=== PATIENT | female | born 1975 | race Caucasian/White ===

== ENCOUNTER → 2019-05-19 09:45 | Outpatient (CLI) | payer OTHER, SELFPAY ==
--- NOTE | ~2019-05-19 | MM_ITS ---
EXAMINATION: MM screening [facility] BI w sandip HISTORY: Screening mammogram TECHNIQUE: Craniocaudal and mediolateral oblique 3-D tomosynthesis images were obtained and synthetic 2-D images were generated. CAD analysis was submitted and interpreted. COMPARISON: 08/20/2014, 12/10/2009 BREAST PARENCHYMAL COMPOSITION: There are scattered areas of fibroglandular density. FINDINGS: There is no evidence of suspicious mass, calcification, or architectural distortion to sugg est malignancy in either breast. There has been no suspicious interval change. IMPRESSION: 1. No mammographic evidence of malignancy. 2. Recommend routine screening mammography in one year. BI-RADS Category 1: Negative Reviewed, dictated and finalized at location A.
== END ==
PROVIDERS: PCP Family Medicine Adolescent Medicine; Visit Provider Family Medicine Adolescent Medicine
DX: Z12.31 Encounter for screening mammogram for malignant neoplasm of breast (principal)
CPT/HCPCS: 77063; 77067

== ENCOUNTER 2020-01-24 07:05 | Outpatient (NON) | payer OTHER, SELFPAY ==
[2020-01-24 18:30] LABS: SARS-CoV-2 RNA PCR Negative
== END 2020-01-24 07:06 ==
LOC: ANHCOVIDDT 07:22
PROVIDERS: Visit Provider Family Medicine Adolescent Medicine
DX: R09.81 Nasal congestion (principal); Z20.828 Contact with and (suspected) exposure to other viral communicable diseases
CPT/HCPCS: 87635; C9803; U0003

== ENCOUNTER → 2021-06-25 15:52 | Outpatient (CLI) | payer OTHER, SELFPAY ==
--- NOTE | ~2021-06-25 | MM_ITS ---
EXAMINATION: MM screening [facility] BI w sandip HISTORY: . TECHNIQUE: Craniocaudal and mediolateral oblique 3-D tomosynthesis images were obtained and synthetic 2-D images were generated. CAD analysis was submitted and interpreted. COMPARISON: 05/19/2019, 08/20/2014 bilateral screening mammogram examinations BREAST PARENCHYMAL COMPOSITION: The breasts are almost entirely fatty. FINDINGS: There is no evidence of suspicious mass, calcification, or architectural distortion to sugg est malignancy in either breast. There has been no suspicious interval change. IMPRESSION: 1. No mammographic evidence of malignancy. 2. Recommend routine screening mammography in one year. BI-RADS Category 1: Negative Reviewed, dictated and finalized at location A.
== END ==
PROVIDERS: PCP Family Medicine Adolescent Medicine; Visit Provider Obstetrics & Gynecology
DX: Z12.31 Encounter for screening mammogram for malignant neoplasm of breast (principal)
CPT/HCPCS: 77063; 77067

== ENCOUNTER 2024-03-20 08:26 | Outpatient (CLI) | payer BC, SELFPAY ==
--- NOTE | 2024-03-20 | ECG_ITS ---
Test Date: 2024-03-20 09:04:47 Measurements Intervals Imbler Rate: 64 P: 60 TN: 207 QRS: 37 QRSD: 85 T: 41 QT: 380 QTc: 393 Interpretive Statements SINUS RHYTHM LOW QRS VOLTAGE IN PRECORDIAL LEADS [QRS DEFLECTION < 1.0 mV IN CHEST LEADS] No previous ECG available for comparison Electronically Signed On 03-20-2024 16:17:41 LEGAL FINANCIAL SPECIALIST by Hardeep Cramer M.D.
--- OUTSIDE RECORDS SUMMARY | 2024-03-20 08:42 | XMS_ITS | Continuity of Care Document ---
Author Organization [id number] [email or web address]) [facility] Address [address] [place] [address] Phone Care Team Providers Care Bean Dumper Name Role Phone Mary Barber MD Unavailable Unavailable Allergies, Adverse Reactions, Alerts Substance Reaction Status Criticality No Known Allergies Active No Inform ation Medications Medication Instructions Dosage Effective Dates (start - stop) Status Comments tramadol 50 mg tablet take 1 tablet by oral route every 6 hours as needed 50 MG - Active Xanax 0.5 mg tablet take 1 tablet by oral route 2 times every day 0.5 MG - Active Imitrex 100 mg tablet take 1 tablet by oral route once at onset of headache, may repeat in 2 hours one time 100 MG - Active Zithromax Z-Daryn 250 mg tablet take 2 tablet by oral route every day for 1 day then 1 tablet (250 mg) by oral route once daily for 4 days 500 MG - No Longer Active Problems Condition Type Effective Dates (start - stop) Clini sincere Status Comments No Known Problems Procedures Procedure Date OFFICE/OUTPT EM EST EXP PROB FOCUS/LOW 1 5 MINS PREVENTIVE MED ESTABLISHED PT 40-64YRS S COLLECTION VENOUS BLOOD VENIPUNCTURE June PREVENTIVE MED INITIAL NEW PT 40-64YRS M Advance Directives Directive Yes / No Effective Date File Name No Information Encounters Encounter Description Practice Location Reason(s) For Visit Diagnoses Date Provider Providers Copied on Encounter [id number] - [place] [employer], [address], [place], [place], [facility], [place] tel:[phone] [facility] No Information 7 Elisabeth Hernandez. [address] [place] [address], [address], [place], [place], [address] [place] [address] , . [phone] OFFICE/OUTPT EM EST EXP PROB FOCUS/LOW 15 MINS [id number] - [place] [facility] [employer], [address], [place], [place], [facility], [place] tel:[phone] [facility] check up (chief complaint) Migraine without status migrainosus, not intractable, unspecified migraine typeAnxietyBody mass index (BMI) 27.0-27.9, adult Apr- 7 Elisabeth Hernandez. [address] [place] [address], [address], [place], [place], [id number] , . tel:[phone] Referring Provider: Mary Hodges, [address] [place] [address] [address], [place], [address] . tel:[phone] [id number] - [place] [facility] [employer] [email or web address], [address] [address], [place], [place], [facility], [place] tel:[phone] [facility] Encntr screen mammogram for malignant neoplasm of breast 6 Elisabeth Hernandez. [address] [place] [address], [address], [place], [place], [id number] , . tel:[phone] [id number] - [place] [facility] [email or web address], [address], [place], [address], [place] tel:[phone] [facility] No Information 6 Elisabeth Hernandez. [address] [place] [address], [address], [place], [place], [id number] , . tel:[phone] PREVENTIVE MED ESTABLISHED PT 40-64YRS [id number] - [place] [facility] [email or web address], [address], [place], [address], [place] tel:[phone] [facility] pap test (chief complaint) Well woman examBody mass index (BMI) 25.0-25.9, adult 6 Elisabeth Hernandez. [address], [address], [place], [place], [id number] , . tel:[phone] Referring Provider: Mary Hodges, [address] [place] [address] [address], [place], [address] . tel:[phone] PREVENTIVE MED INITIAL NEW PT 40-64YRS [id number] - [place] [facility] [employer],[facility], [address], [place], [address], [place] tel:[phone] [facility] physical (chief complaint) Adult general medical exam 6 Elisabeth Hernandez. [address] [place] [address], [address], [place], [place], [id number] , . tel:[phone] Referring Provider: Mary Hodges, [address] [place] [address] [address], [place], [address] . tel:[phone] Family History Family Member Type Diagnosis Age At Onset Maternal aunt Problem (finding) breast cancer Paternal grandmother Problem (finding) alzheimer's dis ease Payers Payer name Insurance type Covered alliance party ID Breezy thompson(s) [facility] [place] [facility] [place] [id number] Social History Type Description Quantity Date Captured Comments Alcohol Use Details Unknown Caffeine Use Details Unknown Tobacco Use Status No Information Smoking Status No Information Sex Female Chief Complaint And Reason For Visit No Information Reason For Referral Reason For Referral No Information History Of Present Illness Encounter Date Complaint History Of Prese nt Illness check up here for follow up of migraines. tramadol works well for pain control. needs a refill. migraines are not frequent.needs a refill of xanax. takes as needed for anxiety. works well. no other complaints pap test Parity: Term: 2. The patient states she uses essure for control. Last LMP was 10/27/2015. Her menses is regular with a frequency of every 28 days. Negative for dysmenorrhea and menorrhagia. Negative for: breast discharge, breast lump(s) and breast pain. Positive for: breast self exam.The patient is not post-menopausal. Pertinent negatives include abnormal bleeding, anxiety, depression, difficulty falling sleep, history of infertility, sleep disturbances, urinary incontinence, urinary urgency, vaginal discharge and vaginal itching. The patient does not use tobacco. She has not been exposed to passive smoke. She does not drink alcohol. physical here for zane phillips history of gastric bypass surgery. wants to have routine labs drawn. denies any current complaints. has been exercising. has been eating healthy. Functional Status Date Functional Assessmen t No Information Instructions Date Instruction Additional Infor mation No Information Assessments Type Assessment Date No Information Patient Care Teams Name Effective Dates (start - stop) Status Members No Information
--- OUTSIDE RECORDS SUMMARY | 2024-03-20 08:42 | XMS_ITS | Clinical Summary ---
Author Organization [facility] Address [facility] [facility]. [place], [place] [id number] [place] [address] Care Team Providers Care Sustainable Agriculture Faculty Name Role Phone Unavailable Primary Care Provider Unavailabl e Social History Tobacco Use Types Packs/Day Years Used Date Smoking Tobacco: Never Assessed Comments Unknown Sex and Gender Information Value Date Recorded Sex Assigned at Not on file Legal Sex Female 7:35 PM CDT Gender Identity Not on file Sexual Orientation Not on file Plan of Treatment Health Maintenance Due Date Last Done Comments Cervical Cancer Screening Pa p Smear (Age 30 to 64) Every 3 Years 1973 Colorectal Cancer Screening Colonoscopy (10 Years) 1973 Annual Physical 1976 Hepatitis C 07/18/1991 DTaP, Tdap and Td Vaccines ( 1 - Tdap) 1992 Hepatitis B Vaccines (1 of 3 - 19+ 3-dose series) 1992 Cervical Cancer Screening Pa p with HPV Testing (Age 30 to 64) Every 5 Years 07/18/2003 Cervical Cancer Screening with HPV 07/18/2003 Mammogram Screening 2013 Zoster Vaccines (1 of 2) 07/18/2023 COVID-19 Vaccine (2023-2 5 season) 2023 Influenza Adult (#1) 2023 Meningococcal B Vaccine Aged Out No l onger eligible based on patient's age to complete this topic Meningococcal Vaccine Aged Out No margot aidan eligible based on patient's age to complete this topic Pneumococcal Vaccine: Pediat rics (0 to 5 Years) and At-Risk Patients (6 to 64 Years) Aged Out No longer eligible b ased on patient's age to complete this topic RSV Immunizations Under 20 Months Aged Out No longer eligible based on patient's age to complete this topic
== END 2024-03-20 08:27 | disposition home or self-care (01) ==
LOC: ANHLAB 08:30
PROVIDERS: PCP Family Medicine Adolescent Medicine; Visit Provider Podiatrist Foot & Ankle Surgery
DX: R03.0 Elevated blood-pressure reading, without diagnosis of hypertension (principal)
CPT/HCPCS: 93005

== ENCOUNTER 2024-06-13 00:50 | Day surgery (SDC) | payer BC, SELFPAY ==
[2024-06-01 11:11] VITALS: BMI 26.2
--- OUTSIDE RECORDS SUMMARY | 2024-06-13 00:53 | XMS_ITS | Clinical Summary ---
Author Organization [facility] Address [facility] [place] [address] Care Team Providers Care Traditional Chinese Herbalist Name Role Phone Unavailable Primary Care Provider [...] Screening with HPV 07/18/2003 Mammogram Screening 2013 Pneumococcal Vaccine: 50+ Ye ars (1 of 1 - PCV) 07/18/2023 Zoster Vaccines (1 of 2) 07/18/2023 COVID-19 Vaccine (1 - 2023-2 5 season) 2023 Meningococcal B Vaccine Aged Out No l onger eligible based on patient's age to complete this topic Meningococcal Vaccine Aged Out No margot aidan eligible based on patient's age to complete this topic RSV Immunizations Under 20 Months Aged Out No longer eligible based on patient's age to complete this topic
--- NOTE | 2024-06-13 06:48 | P.PNAN_ITS ---
Anes - Initial Pre Proc Eval Procedure: Operation Date: 06/13/24 08:00 Proposed Procedures p Screening Colonoscopy - Alex Girard MD Date/Time: 06/13/24 06:48 Surgeon: Alex Girard MD Pre Op Diagnosis: Screening Patient Data Age: 48 Gender: F Height: 1.6 m Weight: 67.2 kg Allergies Allergy/AdvReac Type Severity Reaction Status Date / Time No Known Allergies Allergy Unknown Verified 06/13/24 06:47 Home Medications ?Medication ?Instructions ?Recorded ?Confirmed ?Type furosemide 20 mg tablet See Rx Instructions .Route 09/22/22 06/01/24 Rx .COMPLEX #30 tabs semaglutide (weight loss) 1 mg/0.5 1 mg (0.5 mL) subcut Q7D #2 mL 04/20/24 06/01/24 Rx mL subcutaneous pen injector (Wegovy) topiramate 100 mg tablet 100 mg PO QHS #90 tabs 05/31/24 06/01/24 Rx calcium no.26 167 mg-magnesium 1 cap PO DAILY 06/01/24 06/01/24 History no.15 83 mg-zinc 5 mg capsule (Smdtbad-Pcigkblzk-Vnmx Complex) cholecalciferol (vitamin D3) 125 125 mcg PO DAILY 06/01/24 06/01/24 History mcg (5,000 unit) capsule multivitamin with minerals-folic 1 tablet PO DAILY 06/01/24 06/01/24 History acid 0.4 mg tablet (One-A-Day Women's 50 Plus) Patient hx anesthesia problems: none Family hx anesthesia problems: none Results Review: All pre-operative results and documents have been reviewed as part of the pre- operative evaluation. [facility] Past Medical History Medical History Epigastric hernia Surgical History Surgical History H/O gastric bypass 07/23 with cholecystectomy Social History Social History Smoking packs per day: 0.25 Smoking cigarettes per day: 5.0 Smoking status: Former smoker Tobacco type: cigarettes Smoking end date: 02/22/08 Additional smoking assessment comments: quit 2000 Alcohol intake: current Drinks per week: 2 Substance use: never Lack of Transportation: No Lack of Food: Never True Current Housing: I Have Housing Concerned About Future Housing: No Difficulty Paying Gas/Electric Bills: No Difficulty Paying for Meds: No Currently Unemployed: No Education: High School Diploma/GED Difficulty w/ Childcare or Family Care: No Living arrangements: with family Occupation/Education: occupation Spiritual care concerns: No Anes - Eval Final PreProcedure Day of Procedure 06/13/24 06:48 Patient weight: overweight Heart: regular rate and rhythm Lungs: clear to auscultation Airway: Mallampati scale class II Neurological: alert and oriented Last oral intake: >/= 8 hours ASA classification: II Emergent: no Anesthetic plan: proceed Anesthesia type and monitoring: general GIVS and standard monitoring Results Review: All pre-operative results and documents have been reviewed as part of the pre- operative evaluation. Informed Consent: The patient's anesthetic plan and its attendant risks and benefits were discussed with the patient/family/POA. Questions were solicited and answers provided to the satisfaction of the patient/family/POA.
[2024-06-13 06:49] VITALS: BP 131/69; PULSE 69; RESP 16; TEMP 36.5; O2SAT 100
[2024-06-13 06:59] LABS: BEDSIDEPREGUCG Negative (Negative)
[2024-06-13] MEDS: LACTATED RINGERS 1,000 ML 150 ML IV CONT (07:04)
--- NOTE | 2024-06-13 08:00 | PM.IMHP ---
H&P: HPI History of Present Illness Date/Time: 06/13/24 08:00 Chief Complaint: Screening colonoscopy Narrative: This is the patient's first colonoscopy. There are no GI symptoms and there is no family history of colorectal cancer. Review of Systems Review of Systems: All systems reviewed & are unremarkable except as noted in HPI and below PMFSH Past Medical History Medical History Epigastric hernia Surgical History Surgical History H/O gastric bypass 07/23 with cholecystectomy Social History Social History Smoking packs per day: 0.25 Smoking cigarettes per day: 5.0 Smoking status: Former smoker Tobacco type: cigarettes Smoking end date: 02/22/08 Additional smoking assessment comments: quit 2000 Alcohol intake: current Drinks per week: 2 Substance use: never Lack of Transportation: No Lack of Food: Never True Current Housing: I Have Housing Concerned About Future Housing: No Difficulty Paying Gas/Electric Bills: No Difficulty Paying for Meds: No Currently Unemployed: No Education: High School Diploma/GED Difficulty w/ Childcare or Family Care: No Living arrangements: with family Occupation/Education: occupation Spiritual care concerns: No Meds Home Medications and Allergies Home Medications ?Medication ?Instructions ?Recorded ?Confirmed ?Type furosemide 20 mg tablet See Rx Instructions .Route 09/22/22 06/01/24 Rx .COMPLEX #30 tabs semaglutide (weight loss) 1 mg/0.5 1 mg (0.5 mL) subcut Q7D #2 mL 04/20/24 06/13/24 Rx mL subcutaneous pen injector (Cody) topiramate 100 mg tablet 100 mg PO QHS #90 tabs 05/31/24 06/13/24 Rx calcium no.26 167 mg-magnesium 1 cap PO DAILY 06/01/24 06/13/24 History no.15 83 mg-zinc 5 mg capsule (Ibbhihi-Dihevpfvh-Odcm Complex) cholecalciferol (vitamin D3) 125 125 mcg PO DAILY 06/01/24 06/13/24 History mcg (5,000 unit) capsule multivitamin with minerals-folic 1 tablet PO DAILY 06/01/24 06/13/24 History acid 0.4 mg tablet (One-A-Day Women's 50 Plus) Allergies Allergy/AdvReac Type Severity Reaction Status Date / Time No Known Allergies Allergy Unknown Verified 06/13/24 06:47 Vital Signs Vital Signs - 24 hr 06/13/24 06:49 Temperature 97.7 F Pulse Rate 69 Respiratory Rate 16 Blood Pressure 131/69 Pulse Oximetry 100 Oxygen Delivery Room Air Exam Const: General: cooperative and healthy appearing Resp: Effort & Inspection: normal respiratory effort and able to speak in complete sentences Auscultation: clear to auscultation bilaterally Cardio: Rate: regular rate Rhythm: regular rhythm GI: Inspection: normal to inspection GI Palp: No No hepatosplenomegaly present Auscultation: normal bowel sounds Rectal Exam: deferred Skin: General skin exam: normal color Psych: Appearance: grossly normal Mental Status: mental status grossly normal Assessment and Plan Assessment and plan (1) Colon cancer screening: Code(s): Z12.11 - Encounter for screening for malignant neoplasm of colon Status: Acute Assessment and Plan: The patient is deemed a good candidate for the procedure. Consent signed. Will proceed.
[2024-06-13 08:28] VITALS: BP 102/58; PULSE 72; RESP 100; O2SAT 100
[2024-06-13 08:38] VITALS: BP 118/79; PULSE 58; RESP 17; O2SAT 100
[2024-06-13 08:48] VITALS: BP 126/84; PULSE 62; RESP 18; O2SAT 100
== END 2024-06-13 09:02 | disposition home or self-care (01) ==
PROVIDERS: Anesthesiology; PCP Family Medicine Adolescent Medicine; Referring Provider Nurse Practitioner Family; Visit Provider Internal Medicine Gastroenterology
PROC: 0DJD8ZZ Inspection of Lower Intestinal Tract, Via Natural or Artificial Opening Endoscopic (ICD-10-PCS; CPT 45378; principal; 2024-06-13 08:00)
DX: Z12.11 Encounter for screening for malignant neoplasm of colon (principal); D12.3 Benign neoplasm of transverse colon; Z79.85 Long-term (current) use of injectable non-insulin antidiabetic drugs; Z98.890 Other specified postprocedural states; Z98.84 Bariatric surgery status; Z90.49 Acquired absence of other specified parts of digestive tract; Z87.891 Personal history of nicotine dependence
CPT/HCPCS: 45385; 88305; J2003; J2704; J7120

== ENCOUNTER 2024-08-31 15:01 | Outpatient (CLI) | payer BC, SELFPAY ==
--- NOTE | ~2024-08-31 | MM_ITS ---
EXAMINATION: MM screening [facility] BI w sandip HISTORY: Screening TECHNIQUE: Craniocaudal and mediolateral oblique 3-D tomosynthesis images were obtained and synthetic 2-D images were generated. CAD analysis was submitted and interpreted. COMPARISON: Comparison to multiple prior studies sequentially, with oldest reviewed study dated 06/2021. BREAST PARENCHYMAL COMPOSITION: Not dense: There are scattered areas of fibroglandular density. FINDINGS: There is no evidence of suspicious mass, calcification, or architectural distortion to sugg est malignancy in either breast. There has been no suspicious interval change. IMPRESSION: 1. No mammographic evidence of malignancy. 2. Recommend routine screening mammography in one year. BI-RADS Category 1: Negative Reviewed, dictated and finalized at location []
== END 2024-08-31 15:02 | disposition home or self-care (01) ==
LOC: MICIMG 15:02
PROVIDERS: PCP Family Medicine Adolescent Medicine; Visit Provider Nurse Practitioner Family
DX: Z12.31 Encounter for screening mammogram for malignant neoplasm of breast (principal)
CPT/HCPCS: 77063; 77067

== ENCOUNTER 2025-01-09 11:41 | Outpatient (CLI) | payer BC, SELFPAY ==
--- NOTE | ~2025-01-09 | DEXA_ITS ---
Bone Density Report Name: HENRY VARGAS Age: 49 Sex: Female Ethnicity: White Date of : 1975 Indication: postmenopausal; screening for osteoporosis; Referring Provider: MAE SPRINGER Study: Bone densitometry was performed. Exam Date: January 09, 2025 Accession number: [id number] Bone Density: Region BMD T-score Z-score Classification AP Spine(L1-L4) 0.759 -2.6 -1.8 Osteoporosis Femoral Neck (Left) 0.523 -2.9 -2.1 Osteoporosis Total Hip (Left) 0.653 -2.4 -1.8 Osteopenia Femoral Neck (Right) 0.460 -3.5 -2.7 Osteoporosis Total Hip (Right) 0.619 -2.6 -2.1 Osteoporosis Total Hip Mean 0.636 -2.5 -2.0 Osteoporosis World Health Organization criteria for BMD impression classify patients as: Normal (T-score at or above -1.0), Osteopenia (T-score between -1.0 and -2.5), or Osteoporosis (T-score at or below -2.5). 10-year Fracture Risk: FRAX not reported because: Some T-score for Spine Total or Hip Total or Femoral Neck at or below -2.5 Clinical Information Provided by Patient: Has used the following medications: Vitamin D, Calcium Patient maximum height was 64 Menopause Age: 49 No regular weight bearing exercise Does not regularly consume dairy products Drinks caffeinated beverages Onset of menses at age 10 Number of children 2 Impression: The patient has osteoporosis, based on the Right Femoral Neck T-score. Discussion: HIGH RISK OF FRACTURE. BONE DENSITY IS UNDESIRABLY LOW AT ONE OR MORE SKELETAL SITES, CONSISTENT WITH OSTEOPOROSIS. ALSO, BONE DENSITY IS LOWER THAN EXPECTED FOR AGE AND SEX AT ONE OR MORE SKELETAL SITES; RECOMMEND A DILIGENT SEARCH FOR SECONDARY CAUSES OF BONE LOSS. This patient's lowest T-score meets the World Health Organization's (WHO) criteria for osteoporosis at one or more sites (T-score -2.5 or below). In untreated patients, the risk of osteoporotic fracture increases approximately two-fold for each 1.0 SD decrease in T-score. Low bone density is not the only risk factor for fracture; also consider factors such as patient's age, frailty or poor health, risk of falling, risk of injury, previous osteoporotic fracture, family history of osteoporosis, cigarette smoking, low body weight, etc. Not everyone with low bone mineral density has osteoporosis; osteomalacia and other metabolic bone disorders should also be considered. Patients who have osteoporosis should be evaluated for specific diseases and conditions (secondary causes) that may cause or contribute to bone loss. The [place] Association of Clinical Endocrinologists (AACE) and National Osteoporosis Foundation (NOF) recommend pharmacologic intervention for all postmenopausal women whose T-score is in this range. Also, this patient's bone mineral density is below the range considered normal for healthy age-, sex-, and race-matched controls at least one site (Z-score -2.0 or below). This warrants careful evaluation for diseases and conditions that may contribute to accelerated bone loss. The patient should follow a healthful lifestyle (good nutrition with adequate calcium and vitamin D, and appropriate weight-bearing exercise). Follow-Up: Consider a repeat BMD and Vertebral Fracture Assessment (VFA) exam in 2 years or sooner if medically necessary, to reassess this patient's status. Reported by: IVAN on 01/09/2025 12:04:00 PM. Reviewed, dictated and finalized at location A.
== END 2025-01-09 11:42 | disposition home or self-care (01) ==
LOC: MICIMG 11:42
PROVIDERS: PCP Nurse Practitioner Family; Visit Provider Nurse Practitioner Family
DX: Z78.0 Asymptomatic menopausal state (principal); Z82.62 Family history of osteoporosis; Z87.891 Personal history of nicotine dependence; M81.0 Age-related osteoporosis without current pathological fracture; M85.852 Other specified disorders of bone density and structure, left thigh
CPT/HCPCS: 77080

== ENCOUNTER 2025-01-23 12:24 | Outpatient (CLI) | payer BC, SELFPAY ==
--- OUTSIDE RECORDS SUMMARY | 2025-01-23 13:32 | XMS_ITS | Clinical Summary ---
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
== END 2025-01-23 12:25 | disposition home or self-care (01) ==
LOC: ANHSURGERY 12:31
PROVIDERS: PCP Nurse Practitioner Family; Visit Provider Surgery
DX: K43.2 Incisional hernia without obstruction or gangrene (principal); Z01.818 Encounter for other preprocedural examination
CPT/HCPCS: 36415; 86850; 86900; 86901

== ENCOUNTER 2025-01-28 01:06 | Day surgery (SDC) | payer BC, SELFPAY ==
[2025-01-22 14:09] VITALS: BMI 23.7
--- NOTE | 2025-01-22 14:20 | SUR.PREOP ---
[facility] has started construction of its new state of the art ER which will open Spring 2026. With this, we anticipate parking may be a challenge for some our surgical patients and families. Parking spaces are limited but are available for all Surgical, obstetrics, and ER patients sharing this lot. If you arrive and find you are having a hard time finding a parking space, please note that we understand the challenges, please drive around the hospital and park near Hospital Entrance 1. When you enter this entrance, you can ask a volunteer to direct or take you back to the surgical waiting area to check in. We appreciate everyone?s understanding of these expected challenges while we build for your future. Report to the Outpatient Waiting Room, entrance under the green pavilion located off [address], at time 10:30a.m. on date 01/28/2025. Planned Procedure Time: 12:30a.m.? Time changes happen often and if your time is changed the preop area will call you the afternoon before. - You and your visitor will be asked to self-screen and do not enter if you have any COVID symptoms. Please call surgeon if you need to reschedule. - A mask is optional within the hospital at this time. Patients may have clear liquids (water, carbonated beverages, clear teas, apple juice) until 3 hours prior to surgery with a maximum of 20 ounces. - No food from midnight until time of surgery and no smoking, or chewing tobacco (or any form of nicotine). No chewing gum, candy or mints. Take only the following medications with a SIP of water on the morning of surgery: NONE (Topiramate is taken at night) DO NOT STOP ANY OF YOUR OTHER PRESCRIPTION MEDICATIONS PRIOR TO SURGERY EXCEPT THE FOLLOWING Hold all vitamins and supplements for 3 days per anesthesiologist. 01/25/2025 Medications to discontinue per physician: Lemuelgovshahida Date to take last dose 01/17/2025 Please no make-up, nail georgian, hairspray, perfume, deodorant, or body powder the day of surgery.? No jewelry (including any body piercings) or valuables the day of surgery, leave them at home.? Please take a shower or bath the night before, or the morning of, surgery with an antibacterial soap.? Wear comfortable, loose fitting clothing.? Children are encouraged to wear pajamas. - Jewelry must be removed prior to entering the operating room.? Rings and piercings that are not removed may be cut off. - The hospital will not accept responsibility for valuables.? - Please leave all valuables, including medications, at home the day of surgery. If you are going home after surgery, a licensed airport shuttle driver must drive you home.? - NO public transportation without another adult if you receive anesthesia. - We recommend that an adult stay with you for 24 hours following discharge. - We also recommend that you do not drive, make important decision, drink alcoholic beverages, or take any drugs that were not prescribed by your health care provider for at least 24 hours after your discharge time. Follow any additional instructions given to you from your surgeon. Telephone instructions given to Mary Moreno and asked if any additional questions and then verbalized understanding. Patient advised to call surgeon office or pre surgery nurse liaison [phone] if any additional questions.
[2025-01-28] VITALS (10 sets, daily range): BP systolic 100–126; BP diastolic 66–80; PULSE 69–87; RESP 16–20; TEMP 37; O2SAT 96–100
--- OUTSIDE RECORDS SUMMARY | 2025-01-28 01:09 | XMS_ITS | Clinical Summary ---
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
--- NOTE | 2025-01-28 07:30 | PM.IMHP2 ---
H&P: HPI History of Present Illness Date/Time: 01/28/25 07:30 Chief Complaint: incisional hernia Narrative: Mary is a 49 y/o female who presents to the office at the request of Araceli Chapman APRN for an evaluation of an abdominal bulge. Patient reports she noticed the bulge over 10 years ago. She believes the bulge is reducible and tender to palpation. She reports tolerating a normal diet and having regular BM's. She also has another small lump just to the left of the initial bulge. She denies pain, but states it has increased in size. Review of Systems Review of Systems: All systems reviewed & are unremarkable except as noted in HPI and below PMFSH Past Medical History Medical History Epigastric hernia Surgical History Surgical History H/O gastric bypass 07/23 with cholecystectomy Social History Social History Smoking packs per day: 0.25 Smoking cigarettes per day: 5.0 Smoking status: Former smoker Tobacco type: cigarettes Smoking end date: 02/22/08 Additional smoking assessment comments: quit 2000 Alcohol intake: current Drinks per week: 2 Substance use: never Lack of Transportation: No Lack of Food: Never True Current Housing: I Have Housing Concerned About Future Housing: No Difficulty Paying Gas/Electric Bills: No Difficulty Paying for Meds: No Currently Unemployed: No Education: High School Diploma/GED Difficulty w/ Childcare or Family Care: No Living arrangements: with family Occupation/Education: occupation Spiritual care concerns: No Meds Home Medications and Allergies Home Medications ?Medication ?Instructions ?Recorded ?Confirmed ?Type furosemide 20 mg tablet See Rx Instructions .Route 09/22/22 01/22/25 Rx .COMPLEX #30 tabs topiramate 100 mg tablet 100 mg PO QHS #90 tabs 05/31/24 01/22/25 Rx calcium no.26 167 mg-magnesium 1 cap PO DAILY 06/01/24 01/22/25 History no.15 83 mg-zinc 5 mg capsule (Cegayom-Lzrnbnyno-Bepy Complex) cholecalciferol (vitamin D3) 125 125 mcg PO DAILY 06/01/24 01/22/25 History mcg (5,000 unit) capsule multivitamin with minerals-folic 1 tablet PO DAILY 06/01/24 01/22/25 History acid 0.4 mg tablet (One-A-Day Women's 50 Plus) semaglutide (weight loss) 1 mg/0.5 1 mg (0.5 mL) subcut WEEKLY #2 mL 09/05/24 01/22/25 Rx mL subcutaneous pen injector (Wegovy) alendronate 70 mg tablet 70 mg PO WEEKLY #12 tabs 01/14/25 01/22/25 Rx Ferrasorb Gucci 36 mg PO 3XW 01/22/25 01/22/25 History Allergies Allergy/AdvReac Type Severity Reaction Status Date / Time No Known Allergies Allergy Unknown Verified 01/22/25 13:58 Exam Const: General: cooperative, comfortable and no acute distress Resp: Auscultation: clear to auscultation bilaterally Cardio: Rate: regular rate Rhythm: regular rhythm GI: Inspection: normal to inspection and visible herniation GI Palp: Yes abdominal tenderness, Yes Soft to palpation, Yes Hernia present and Yes Palpable mass present Other: upper incisional hernia incarcerated measuring 5 cm deviating to the right, left upper quadrant subcutaneous mass most consistent lipoma measuring 3 x 2 cm Assessment and Plan Assessment and plan (1) Incisional hernia without obstruction or gangrene: Code(s): K43.2 - Incisional hernia without obstruction or gangrene Status: Acute Assessment and Plan: will set up for robotic assisted repair with mesh (2) Lipoma of abdominal wall: Code(s): D17.1 - Benign lipomatous neoplasm of skin and subcutaneous tissue of trunk Status: Acute Assessment and Plan: will set up for excisional biopsy
[2025-01-28 11:48] LABS: Hematocrit 39.2 % (37.0-47.0); Hemoglobin 12.7 g/dL (12.0-15.0)
[2025-01-28] MEDS: ACETAMINOPHEN 500 MG TABLET 1000 MG PO (12:34)
[2025-01-28] MEDS: KETOROLAC 15 MG/ML VIAL (*BKC) IV PUSH (12:34)
--- NOTE | 2025-01-28 13:02 | WPDHPUPDATE1 ---
History and Physical Update Update Date/Time: 01/28/25 13:02 History and Physical has been reviewed, including an updated exam of the patient. There are NO changes in the patient's condition. Risks, benefits, and alternatives have been discussed and questions answered. Patient agrees to proceed with procedure.
--- NOTE | 2025-01-28 13:04 | WPDANESEPPF ---
Anes - Initial Pre Proc Eval Procedure: Operation Date: 01/28/25 12:30 Proposed Procedures p Robotic Incarcerated Incisional Hernia Repair with Mesh, Excisional Biopsy Left Upper Quadrant Subcutaneous Mass - Mary Schreiber MD Date/Time: 01/28/25 13:04 Surgeon: Mary Schreiber MD Pre Op Diagnosis: Incar Incisional Hernia 5 cm Patient Data Age: 49 Gender: F Height: 1.6 m Weight: 60.2 kg Last Vital Signs Temp 98.6 F 01/28/25 12:35 Pulse 72 01/28/25 12:35 Resp 16 01/28/25 12:35 BP 126/80 01/28/25 12:35 Pulse Ox 100 01/28/25 12:35 O2 Del Method Room Air 01/28/25 12:35 Allergies Allergy/AdvReac Type Severity Reaction Status Date / Time No Known Allergies Allergy Unknown Verified 01/28/25 12:33 Home Medications ?Medication ?Instructions ?Recorded ?Confirmed ?Type furosemide 20 mg tablet See Rx Instructions .Route 09/22/22 01/22/25 Rx .COMPLEX #30 tabs topiramate 100 mg tablet 100 mg PO QHS #90 tabs 05/31/24 01/22/25 Rx calcium no.26 167 mg-magnesium 1 cap PO DAILY 06/01/24 01/22/25 History no.15 83 mg-zinc 5 mg capsule (Rcrfffo-Oyquogtpk-Fzan Complex) cholecalciferol (vitamin D3) 125 125 mcg PO DAILY 06/01/24 01/22/25 History mcg (5,000 unit) capsule multivitamin with minerals-folic 1 tablet PO DAILY 06/01/24 01/22/25 History acid 0.4 mg tablet (One-A-Day Women's 50 Plus) semaglutide (weight loss) 1 mg/0.5 1 mg (0.5 mL) subcut WEEKLY #2 mL 09/05/24 01/22/25 Rx mL subcutaneous pen injector (Wegovy) alendronate 70 mg tablet 70 mg PO WEEKLY #12 tabs 01/14/25 01/22/25 Rx Ferrasorb Gucci 36 mg PO 3XW 01/22/25 01/22/25 History Laboratory Tests 01/28/25 11:44 Hgb 12.7 g/dL (12.0-15.0) Hct 39.2 % (37.0-47.0) Patient hx anesthesia problems: post op nausea/vomiting Family hx anesthesia problems: none Results Review: All pre-operative results and documents have been reviewed as part of the pre-operative evaluation. REPLACED BY [facility] Past Medical History Medical History Epigastric hernia Surgical History Surgical History H/O gastric bypass 07/23 with cholecystectomy Social History Social History Smoking packs per day: 0.25 Smoking cigarettes per day: 5.0 Smoking status: Former smoker Tobacco type: cigarettes Smoking end date: 02/22/08 Additional smoking assessment comments: quit 2000 Alcohol intake: current Drinks per week: 2 Substance use: never Lack of Transportation: No Lack of Food: Never True Current Housing: I Have Housing Concerned About Future Housing: No Difficulty Paying Gas/Electric Bills: No Difficulty Paying for Meds: No Currently Unemployed: No Education: High School Diploma/GED Difficulty w/ Childcare or Family Care: No Living arrangements: with family Occupation/Education: occupation Spiritual care concerns: No Anes - Eval Final PreProcedure Day of Procedure 01/28/25 13:04 Patient weight: normal Heart: regular rate and rhythm Lungs: clear to auscultation Airway: Mallampati scale class II Neurological: alert and oriented Last oral intake: >/= 8 hours ASA classification: II Emergent: no Anesthetic plan: proceed Anesthesia type and monitoring: general ETT and standard monitoring Results Review: All pre-operative results and documents have been reviewed as part of the pre-operative evaluation. Informed Consent: The patient's anesthetic plan and its attendant risks and benefits were discussed with the patient/family/POA. Questions were solicited and answers provided to the satisfaction of the patient/family/POA.
[2025-01-28] MEDS: LACTATED RINGERS 1,000 ML 30 ML IV CONT ×2 (13:12→14:58)
[2025-01-28] MEDS: ceFAZolin 2 GM in SODIUM CHLORIDE 0.9% IV 50 ML 100 ML IVPB (13:12)
[2025-01-28] MEDS: SCOPOLAMINE 1 MG PATCH 1 PATCH TRANSDERM (13:12)
--- NOTE | 2025-01-28 14:07 | S_PTH ---
PATIENT: Mary Moreno LOC: [facility] U#:[id number] AGE/SX: 49/F ROOM: RE01/28/[address]: Mary Schreiber MD : 1975 BED: DIS: 01/28/2025 SPEC #: [id number] RECD: 01/29/25 08:11 STATUS: TIANA REQ #: [id number] ROBERTA: 01/28/25 14:[address]: Mary Schreiber DEPT: [facility] Surgical RECD BY: Gwen Zuniga MLT, ([facility]) ENTERED: 01/29/25 08:11 SP TYPE: Surgical OTHR DR: Araceli Chapman APRN Tissues: A - Mass Procedures: Hematoxylin and Eosin Stain Gross and Microscopic Level 3
--- NOTE | 2025-01-28 15:01 | W.PM.PROC2 ---
Procedure Note - Detailed Date of Procedure 01/28/25 Pre-op Diagnosis incarcerated incisional hernia with total defect size 7 cm, subcutaneous mass left upper quadrant abdominal wall measuring 4.5 x 3 cm Post-op Diagnosis Same Procedure Performed robotic assisted repair of incarcerated incisional hernia measuring 7 cm with mesh, extensive lysis of adhesions, excisional biopsy subcutaneous mass left upper quadrant abdominal wall measuring 4.5 x 3 cm Surgeon Mary Schreiber MD Anesthesia General and Local Indications 49 year female presenting to the office with a enlarging upper incisional hernia, patient reports previous open gastric bypass. Patient also noted to have a subcutaneous mass of her left upper quadrant of her abdominal wall. She reports that this mass has been slowly growing in size and is now mildly symptomatic. Findings 4.5 x 3 cm subcutaneous mass left upper quadrant abdominal wall most consistent with lipoma, incarcerated incisional hernia with a large of amount of omentum and preperitoneal fat measuring 4 cm, 3 Mexican cheese defects superior to this larger defect, total defect size measuring 7 cm Description of Procedure The patient was taken the operating room placed in the supine position. After adequate induction of general anesthesia, the patient was prepped and draped in normal sterile fashion. A time-out was then done to verify the patient's identity as well as the procedure being performed. I began by making a incision in the left upper quadrant over the palpable subcutaneous mass. Once through the dermis and the subcutaneous tissue, I was able to palpate this mass. I then bluntly and sharply dissected around this mass with the Bovie cautery and hemostat. Once I was able to get around the entirety of the mass, it was excised in full. This was most consistent with multi lobular lipoma and will be sent to pathology for further review. Through this same incision, a Veress needle was placed into the peritoneal cavity and CO2 gas was insufflated. After adequate pneumoperitoneum was achieved, a 8 mm optiview trocar was placed through this incision. I then placed the laparoscope through this trocar site and under direct visualization I placed a 8 mm port in the left mid abdomen as well as an additional 8 mm port in the left lower abdomen. The abdomen was then docked to these 3 sites. I then went to the robotic console. There was noted to be a large amount of adhesions in the upper abdominal wall. An extensive adhesiolysis was done including reducing the contents of this incarcerated hernia. Using graspers, I was able to reduce this hernia. The hernia was noted to contain a large amount of preperitoneal fat and omentum. Once reduced, I also reduced and dissected out the hernia sac. Of note, there was also 3 smaller Mexican cheese defects just superior to this larger hernia. The total size of all hernias including bridges was approximately 7 cm. I then closed the approximately 4 cm defect with 0 strata fix suture. I also ran the suture and closed the smaller superior Mexican cheese defects and small bridges. I then placed a 10 x 15 cm Ventralight mesh into the abdominal cavity. The positional stitch was placed in the middle of the mesh and brought up centering the mesh over the defect. Once this was done, I used 2 0 V lock suture x 2 to circumferentially suture the mesh to the abdominal. Once the mesh was completely sutured in, I was happy with our tension-free repair. The mesh was noted to have good overlap of the defects. At this point, the robot was undocked and all ports were removed. All port sites were then closed with 4 O Monocryl subcuticular suture. The patient tolerated the procedure well, is extubated in the operating room postoperative, and will be transferred to the recovery room in stable condition. Implants 10 x 15 cm Ventralight mesh in the underlay position Estimated Blood Loss 10 Drains No Packing No Pathology None sent Complications No immediate complications Condition Stable Disposition PACU [facility] Billing Surgery - Charge Forward: Surgery Billing
[2025-01-28] MEDS: ONDANSETRON INJ 4 MG/2 ML VIAL IV PUSH (16:08)
[2025-01-28] MEDS: fentaNYL CITRATE INJ (*CRX) 100 MCG/2 ML VIAL 25 MCG IV PUSH (16:08)
[2025-01-28] MEDS: oxyCODONE HCL (*CRX) 5 MG TAB IR PO (16:55)
== END 2025-01-28 17:55 | disposition home or self-care (01) ==
PROVIDERS: Anesthesiology; PCP Nurse Practitioner Family; Visit Provider Surgery
PROC: (CPT 49594; principal; 2025-01-28 12:30)
DX: K43.0 Incisional hernia with obstruction, without gangrene (principal); K66.0 Peritoneal adhesions (postprocedural) (postinfection); D17.1 Benign lipomatous neoplasm of skin and subcutaneous tissue of trunk; Z98.84 Bariatric surgery status; Z87.891 Personal history of nicotine dependence
CPT/HCPCS: 49594; S2900; 36415; 85014; 85018; 88304; J0690; A9270; C1781; J1100; J1885; J2003; J2250; J2405; J2704; J3010; J7120